=== PATIENT | male | born 1950 | race Hispanic/Latino ===

== ENCOUNTER → 2023-12-09 | Outpatient (CLI) | payer OTHER ==
[~2023-12-09] MED LIST: AMLO-258 PO; ASPI-1005 PO; MESA800T PO; METO-391 PO
== END | disposition home or self-care (01) ==
LOC: SHCH 10:26
PROVIDERS: ATTEND Internal Medicine Cardiovascular Disease
DX: I87.2 Venous insufficiency (chronic) (peripheral) (principal)
CPT/HCPCS: 93970

== ENCOUNTER → 2024-04-04 | Outpatient (CLI) | payer OTHER ==
[2024-04-04 12:31] LABS: CREATININE 1.5 mg/dL (0.5-1.3); POTASSIUM 3.8 mmol/L (3.5-5.1)
== END | disposition home or self-care (01) ==
LOC: LAB 10:12
PROVIDERS: ATTEND Internal Medicine Cardiovascular Disease
DX: M25.512 Pain in left shoulder (principal); I10 Essential (primary) hypertension; E78.5 Hyperlipidemia, unspecified; Z79.899 Other long term (current) drug therapy; Z98.890 Other specified postprocedural states
CPT/HCPCS: 36415; 80048

== ENCOUNTER → 2024-04-05 | Outpatient (CLI) | payer OTHER ==
[~2024-04-05] MED LIST changes: +IOHEXOL 350 MG/ML 100ML INFUS..BTL IV ONE; +METOPROLOL TARTRATE 1 MG/ML 5ML VIAL IV ONE
== END | disposition home or self-care (01) ==
LOC: RAH 08:50
PROVIDERS: ATTEND Internal Medicine Cardiovascular Disease
DX: Z01.810 Encounter for preprocedural cardiovascular examination (principal); I25.10 Atherosclerotic heart disease of native coronary artery without angina pectoris; M47.815 Spondylosis without myelopathy or radiculopathy, thoracolumbar region
CPT/HCPCS: 75574; J3490; Q9967